=== PATIENT | male | born 1980 | race Caucasian/White ===

== ENCOUNTER 2018-04-28 18:03 | Emergency (ER) | payer OTHER ==
[~2018-04-28] VITALS: Ht 177.8 cm; Wt 83.9 kg
[2018-04-28 18:05] VITALS: BP 135/78
== END 2018-04-28 18:56 ==
LOC: ER 18:03
DX: S49.82XA Other specified injuries of left shoulder and upper arm, initial encounter (principal); S59.802A Other specified injuries of left elbow, initial encounter; V09.9XXA Pedestrian injured in unspecified transport accident, initial encounter; Y93.89 Activity, other specified; Y92.89 Other specified places as the place of occurrence of the external cause; Y99.8 Other external cause status